=== PATIENT | female | born 1950 | race Caucasian/White ===

== ENCOUNTER → 2017-04-19 | Outpatient (CLI) | payer MEDICARE, OTHER ==
[~2017-04-19] MED LIST: ALEVE220 MG PO; ASPIRIN EC81 MG PO; COLACE100 MG PO; CPAP INH; DAILY MULTIPLE1 EAC1 PO; GLUCOPHAGE1000 MG PO; GLUCOTROL5 MG PO; LEVOTHROID (S137 MCG PO; LIPITOR10 MG PO; MIRALAX17 GM PO; MOBIC7.5 MG PO; NEURONTIN300 MG PO; PRILOSEC20 MG PO; PRINIVIL OR ZES10 MG PO; ROXICODONE 5MG (5 MG PO; THERA TEARS1 EAC1 OPHTH; TOPROL XL25 MG PO; TYLENOL EXTRA500 MG PO; VALIUM5 MG PO; VITAMIN C500 M1 PO; XARELTO10 MG PO
== END | disposition disaster alternative care site (69) ==
LOC: GBCOE 13:35
DX: Z12.31 Encounter for screening mammogram for malignant neoplasm of breast (principal)
CPT/HCPCS: G0202

== ENCOUNTER → 2017-04-25 | Outpatient (CLI) | payer MEDICARE, OTHER | END | disposition disaster alternative care site (69) | LOC: GRAD 14:14 | DX: D69.6 Thrombocytopenia, unspecified (principal); R16.1 Splenomegaly, not elsewhere classified ==

== ENCOUNTER 2017-05-03 14:00 | Inpatient (IN) | payer MEDICARE, OTHER ==
[~2017-05-03] VITALS: Ht 167.6 cm; Wt 118.7 kg
--- NOTE | ~2017-05-03 | DS ---
PATIENT'S NAME: MUKESH ANTHONY [facility] AGE: 66 Y [address] ROOM: [place] [address] LOCATION: [facility] ADMIT DATE: 05/22/2017 Discharge Summary DISCHARGE DATE: 05/24/2017 FAMILY PHYSICIAN: Elena Cash MD ATTENDING PHYSICIAN: Reilly Marcial PRIMARY DIAGNOSIS: Right knee degenerative joint disease. SECONDARY DIAGNOSES: 1. Thrombocytopenia. 2. Hypertension. 3. Gastroesophageal reflux disease. 4. Hypothyroidism. 5. Diabetes mellitus. 6. Obstructive sleep apnea with CPAP machine. 7. Obesity. 8. Chronic venous insufficiency. PROCEDURE: Right total knee arthroplasty. HISTORY: The patient is a 66-year-old female, who presents with advanced right knee degenerative joint disease and associated severely compromised activities of daily living. The patient has decided to proceed with total knee arthroplasty after being thoroughly counseled regarding the risks, benefits, limitations, and alternatives. Please refer to the outpatient clinical notes and admission history and physical for this patient. HOSPITAL COURSE: The patient underwent a right total knee arthroplasty on May 22, 2017, without complication. General endotracheal anesthesia with peripheral nerve blocks were utilized. The patient received 24 hours of perioperative prophylactic antibiotics and remained hemodynamically stable, neurovascularly intact throughout the entire hospital course. The patient's postoperative prophylactic deep vein thrombosis consisted of Xarelto, early mobilization, and pneumatic compression devices. Daily physical therapy for gait training, transfer training, range of motion, and quadriceps isometric exercises were received. The patient progressed well in physical therapy. On the date of discharge, May 24, 2017, the Mepilex dressing covering the incision was intact and no signs of infection were noted of the knee. DISPOSITION: To home. DISCHARGE ACTIVITY: The patient is to bear weight as tolerated with range of motion and quadriceps isometric exercises as instructed. The operative extremity is to be elevated 90% in the day. The Mepilex dressing covering the patient's surgical incision is to be kept until the patient is seen in PATIENT'S NAME: MUKESH ANTHONY [facility] AGE: 66 Y [address] ROOM: [address] [place] [id number] LOCATION: [facility] ADMIT DATE: 05/22/2017 Discharge Summary DISCHARGE DATE: 05/24/2017 FAMILY PHYSICIAN: Elena Cash MD ATTENDING PHYSICIAN: Reilly Marcial followup. Dr. Marcial to be notified immediately if there is any increased pain, fevers, chills, erythema, or drainage. DISCHARGE MEDICATIONS: 1. Aspirin is to be held while on Xarelto. 2. Naproxen is to be held while on Xarelto. New Medications: 1. Acetaminophen 500 mg two tabs every 6 hours as needed for pain p.o. 2. MiraLax powder 17 g twice a day for constipation. 3. Xarelto 10 mg p.o. daily. 4. Diazepam 5 mg half a tab p.o. q.6 hours p.r.n. muscle spasms. 5. Oxycodone 5 mg 1-2 tabs every 4 hours as needed for pain. 6. Colace 100 mg p.o. b.i.d. as needed for constipation. Otherwise, the patient is to continue her preadmission medications as instructed by her internal medicine doctor. FOLLOWUP: The patient is to follow up in Dr. Marcial' office on May at 9:00 a.m. She is to follow up with [facility] on May 28, 2017 at 9:30 a.m. for CBC draw. WILMA GONZALEZ PA-C FOR MD JUAN MIRELES/sandro /[id number] d: 05/29/17 0223 t: 05/29/17 1408, DISCHARGE SUMMARY
--- NOTE | ~2017-05-03 | OR ---
PATIENT'S NAME: MUKESH HARTMANN [facility] AGE: 66 Y [address] ROOM: [place] [id number] LOCATION: [facility] ADMIT DATE: 05/22/2017 OR/Procedure Report DISCHARGE DATE: FAMILY PHYSICIAN: Elena Cash MD ATTENDING PHYSICIAN: CHRISTINA LOVE SURGEON: Christina Love MD SENIOR MAINTENANCE TECHNICIAN: Magnus Ramsey PA-C DATE OF PROCEDURE: 05/22/2017 PREOPERATIVE DIAGNOSIS: Right tricompartmental primary osteoarthritis of the knee. POSTOPERATIVE DIAGNOSIS: Right tricompartmental primary osteoarthritis of the knee. PROCEDURE PERFORMED: Right total knee arthroplasty with computer-aided navigation. ANESTHESIA: General endotracheal anesthesia with peripheral nerve blocks. ESTIMATED BLOOD LOSS: Minimal. TOURNIQUET: Right proximal thigh to 250 mmHg. SPECIMENS: None. COMPLICATIONS: None. DISPOSITION: Stable, in PACU. COUNTS: All counts were correct. IMPLANTS: Include a tibia plate, size 5 femur, size 32 asymmetric patella, size 11 mm polyethylene liner, and antibiotic Simplex bone cement. This is a [employer] Total Hip Arthroplasty System. INDICATIONS: Ms. Hartmann is a 66-year-old female who underwent the noted procedures above. The risks, benefits, and alternatives to pursuing surgical intervention were discussed with her and her family in detail. She elected to proceed with surgery. I marked the patient's right lower extremity, indicating the correct surgical site. Anesthesia was consulted for their perioperative evaluation of the patient. OPERATIVE REPORT IN DETAIL: The patient was brought from the holding area to the operating room. A time-out was performed. General endotracheal PATIENT'S NAME: MUKESH HARTMANN [facility] AGE: 66 Y [address] ROOM: [address] [address] LOCATION: [facility] ADMIT DATE: 05/22/2017 OR/Procedure Report DISCHARGE DATE: FAMILY PHYSICIAN: Elena Cash MD ATTENDING PHYSICIAN: CHRISTINA LOVE anesthesia was administered. Perioperative antibiotics were administered per routine. The right lower extremity was prepped and draped in a sterile fashion. I turned my attention to the right knee. An Esmarch was used to exsanguinate the limb, and the tourniquet was inflated to 250 mmHg. I began with a median parapatellar incision to access the knee joint. I used the Bovie electrocautery device to remove the anterior and posterior cruciate ligaments and medial and lateral menisci. I dislocated the tibia. I then removed the fat pad from the patella. I removed fat pad, soft tissue, and synovitis from the anterior aspect of the distal femur. I began with my distal femur cut. Using computer-aided navigation, I used an oscillating saw to make my distal femoral cut. I then turned my attention to the proximal tibia. Using computer-aided navigation, I made my proximal tibia cut. I then measured my box, which was symmetric. I turned my attention back to the proximal femur where I finished my proximal tibia where I sized it, drilled for, measured, and placed my trial component. I then turned my attention to the distal femur again. I then finished my distal femoral cuts. I then made my box cut and placed my trial femur. I placed the 11 polyethylene liner. I brought the knee out to length and found that I achieved full extension and full flexion. The collaterals were stable. I then used my patella caliper to measure the depth of the patella. I then used my patellar jig and oscillating saw to finish my patella. I then measured for, drilled, and placed a trial polyethylene patellar button. I then again took the knee through range of motion. I found that the patella tracked well. I then removed all the trial componentry and copiously irrigated the joint with a normal sterile saline solution. I dried the surfaces and prepared for cement implantation. I began with the proximal tibia. I cemented the bone and then placed the proximal tibial component. I then turned my attention to the distal tip of the femur. I cemented in place my final femur component. I placed the 11 polyethylene trial spacer back and brought the knee out to full extension. I then cemented my patellar button in place. After the cement cured, I removed excess cement from the joint using an osteotome and mallet. The wound was then copiously irrigated PATIENT'S NAME: MUKESH HARTMANN [facility] AGE: 66 Y [address] ROOM: [address] [address] LOCATION: [facility] ADMIT DATE: 05/22/2017 OR/Procedure Report DISCHARGE DATE: FAMILY PHYSICIAN: Elena Cash MD ATTENDING PHYSICIAN: DEBLIS,CHRISTINA C again with normal sterile saline solution via pulsatile lavage. Again, the knee was taken through range of motion and found to be stable with the 11 polyethylene liner. I implanted a final 11 polyethylene liner. The knee was reduced, brought through range of motion, and deemed stable from 0 to 140 degrees of flexion with the patella tracking well. The collaterals were stable. Layered closure began with a Stratafix barbed suture to approximate the capsule, followed by 0 Vicryl and 2-0 Vicryl suture for the subcutaneous tissue. Evans were used to approximate the skin. The tourniquet was let down. A sterile Mepilex dressing was placed over the knee followed by a soft dressing in the form of Webril and Benedict. The patient was then transferred from the operating room table onto the stretcher and extubated. She was brought to the recovery room in stable condition. There were no intraoperative complications noted. Of note, my PA, Magnus Ramsey PA-C, played an integral role in the intraoperative care of this patient. This included preoperative positioning, intraoperative expert retraction, and closing and dressing functions. IMPRESSION: The patient is status post the noted procedures above. PLAN: The patient will be weightbearing as tolerated on the right lower extremity. Physical Therapy and Occupational Therapy will be consulted for early ambulation and prevention of deconditioning. The hospitalist will be consulted for management of the patient's concomitant medical comorbidities. Postoperative antibiotics will be administered per routine. Lovenox will be administered for DVT prophylaxis. Case Management and Social Work will be consulted for postoperative placement versus home recommendations. I will continue to follow the patient closely in the postoperative period. MD ELAINA MIRELES/modl /[id number] d: 05/22/17 1249 t: 05/22/17 1723, OPERATIVE SUMMARY
[2017-05-03] MEDS ORDERED: GLUCOPHAGE1000 MG PO (14:55)
[2017-05-03] MEDS ORDERED: LEVOTHROID (S137 MCG PO (14:55)
[2017-05-03] MEDS ORDERED: PRINIVIL OR ZES10 MG PO (14:55)
[2017-05-03] MEDS ORDERED: TOPROL XL25 MG PO (14:55)
[2017-05-03] MEDS ORDERED: NEURONTIN300 MG PO (14:55)
[2017-05-03] MEDS ORDERED: LIPITOR10 MG PO (14:56)
[2017-05-03] MEDS ORDERED: PRILOSEC20 MG PO (14:56)
[2017-05-03] MEDS ORDERED: GLUCOTROL5 MG PO (14:56)
[2017-05-03] MEDS ORDERED: ASPIRIN EC81 MG PO (14:56)
[2017-05-03] MEDS ORDERED: MOBIC7.5 MG PO (14:57)
[2017-05-03] MEDS ORDERED: DAILY MULTIPLE1 EAC1 PO (14:57)
[2017-05-03] MEDS ORDERED: VITAMIN C500 M1 PO (14:57)
[2017-05-03] MEDS ORDERED: ALEVE220 MG PO (14:58)
[2017-05-03] MEDS ORDERED: CPAP INH (14:59)
[2017-05-03] MEDS ORDERED: THERA TEARS1 EAC1 OPHTH (15:00)
--- NOTE | 2017-05-22 17:54 | NUR ---
Significant Event: Pt is a/o. Cooperative. Had general anesthesia with abductor canal block. CSM WNL. Up to chair/commode with 1 assist. WBAT. walker & gaitbelt. Taking routine tylenol for pain control. Refused need for additional pain medication. Denies n/v. EZ wrap on. Hunter hose and foot pumps. O2 2L. Wore her CPAP this afternoon when she was sleepy from OR. Has O22L. AC/HS accuchecks. 198. No insulin needed. Follow up:
--- NOTE | 2017-05-23 04:04 | NUR ---
Pt on RA. VSS. One assist w/ GBW to bathroom. Voiding w/o difficulty. Evening accucheck 215. Pain controlled with scheduled tylenol and po dilaudid. CSM's intact. Dressing C/D/I. CPAP at night.
--- NOTE | 2017-05-23 15:41 | NUR ---
SPOKE TO PATIENT AND HER SPOUSE REGARDING CM AND OUR ROLE. PATIENT HAS ALL HER DME AND SHE IS PLANNING ON GOING HOME WITH HELP FROM HER SPOUSE ONCE SHE IS READY FOR DISCHARGE. PATIENT DOES NOT ANTICIPATE ANY DISCHARGE NEEDS AT THIS TIME.
--- NOTE | 2017-05-23 16:01 | NUR ---
Significant Event: CSM WNL Dressing d/s/i. CSM WNL. Voids in BR. 1 assist, walker, gaitbelt. Dilaudid making her very drowsy, has been changed to oxycodone. Toradol @ 1530. O22L. Wean when more awake. Has CPAP for noc. Foot pumps,corbin hose, ez wrap on. Plans on discharge tomorrow after lunch. ACHS accuchecks. Follow up:
--- NOTE | 2017-05-24 04:59 | NUR ---
Significant Event: Follow up: PATIENT A/OX3, VITAL SIGNS WNL, FOLLOWS COMMANDS, AMBULATED TO RESTROOM, PAIN X1, SLEPT ALL NIGHT
[2017-05-24] MEDS ORDERED: TYLENOL EXTRA500 MG PO (10:06)
[2017-05-24] MEDS ORDERED: COLACE100 MG PO (10:12)
[2017-05-24] MEDS ORDERED: MIRALAX17 GM PO (10:14)
[2017-05-24] MEDS ORDERED: XARELTO10 MG PO (10:15)
[2017-05-24] MEDS ORDERED: VALIUM5 MG PO (10:18)
[2017-05-24] MEDS ORDERED: ROXICODONE 5MG (5 MG PO (10:19)
== END 2017-05-24 18:00 | disposition disaster alternative care site (69) | DRG 470 ==
LOC: G3N 05-22 05:30
PROVIDERS: ADMIT Orthopaedic Surgery Adult Reconstructive Orthopaedic Surgery
PROC: 0SRC0J9 Replacement of Right Knee Joint with Synthetic Substitute, Cemented, Open Approach (ICD-10-PCS; principal; 2017-05-22)
DX: M17.11 Unilateral primary osteoarthritis, right knee (principal); D69.6 Thrombocytopenia, unspecified; Z68.41 Body mass index [BMI] 40.0-44.9, adult; I10 Essential (primary) hypertension; E11.9 Type 2 diabetes mellitus without complications; D64.9 Anemia, unspecified; E03.9 Hypothyroidism, unspecified; E66.01 Morbid (severe) obesity due to excess calories; G47.33 Obstructive sleep apnea (adult) (pediatric); I87.2 Venous insufficiency (chronic) (peripheral); K21.9 Gastro-esophageal reflux disease without esophagitis; Z87.891 Personal history of nicotine dependence
CPT/HCPCS: C1713; C1776; J0131; J0690; J1885; J2001; J2250; J2795; J3010; J7030; J7120

== ENCOUNTER → 2017-05-09 | Outpatient (CLI) | payer MEDICARE, OTHER | END | disposition disaster alternative care site (69) | LOC: GNJRC 09:40 | DX: Z01.812 Encounter for preprocedural laboratory examination (principal); M17.0 Bilateral primary osteoarthritis of knee ==

== ENCOUNTER → 2017-05-10 | Outpatient (CLI) | payer MEDICARE, OTHER | LOC: LFPA 09:16 | DX: D69.6 Thrombocytopenia, unspecified (principal) ==